=== PATIENT | female | born 1985 | race Caucasian/White ===

== ENCOUNTER 2023-02-20 07:53 | Emergency (ER) | payer OTHER ==
[2023-02-20 08:06] VITALS: BP 127/77; PULSE 88; RESP 16; TEMP 98.6; BMI 19.9
== END 2023-02-20 08:58 | disposition home or self-care (01) ==
LOC: FER 07:53
DX: O9A.211 Injury, poisoning and certain other consequences of external causes complicating pregnancy, first trimester (principal); S81.012A Laceration without foreign body, left knee, initial encounter; S81.812A Laceration without foreign body, left lower leg, initial encounter; W01.0XXA Fall on same level from slipping, tripping and stumbling without subsequent striking against object, initial encounter; Y92.9 Unspecified place or not applicable; Z3A.12 12 weeks gestation of pregnancy
CPT/HCPCS: 99283-25; 99284-25